=== PATIENT | female | born 1960 | race African-American/Black ===

== ENCOUNTER 2018-01-17 08:44 | Emergency (ER) | payer MEDICAID ==
[~2018-01-17] VITALS: Ht 157.5 cm; Wt 62.2 kg
[~2018-01-17 08:44] MED LIST: DIAZ5TAB4 PO; GABAPENTIN PO; HYDR-3237 PO; METH750T87 PO; NAPROXEN PO; OMEP10CA4 PO; OXYC-302 PO; TRIA60LO3 TP
[2018-01-17 08:46] VITALS: BP 163/88
[2018-01-17] MEDS ORDERED: HYDROmorphone 1 MG/ML, 1ML IM ONE (09:00)
[2018-01-17] MEDS ORDERED: ONDANSETRON ODT 4 MG PO ONE (09:00)
[2018-01-17] MEDS ORDERED: GABA-827 PO (09:02)
[2018-01-17] MEDS ORDERED: OXYC1TAB9 PO (09:02)
[2018-01-17] MEDS ORDERED: AMIT100T PO (09:02)
[2018-01-17] MEDS ORDERED: HYDROmorphone 2 MG/ML, 1ML ONE (09:05)
[2018-01-17] MEDS ORDERED: ONDANSETRON ODT 4 MG ONE (09:05)
== END 2018-01-17 10:12 | disposition home or self-care (01) ==
LOC: ED 09:06
DX: S52.602A Unspecified fracture of lower end of left ulna, initial encounter for closed fracture (principal); W01.0XXA Fall on same level from slipping, tripping and stumbling without subsequent striking against object, initial encounter; Y93.01 Activity, walking, marching and hiking; Y92.410 Unspecified street and highway as the place of occurrence of the external cause; Y99.8 Other external cause status
CPT/HCPCS: 73110; 73130; 96372; 99284; J1170; Q0162

== ENCOUNTER 2020-01-05 17:14 | Emergency (ER) | payer MEDICAID, MEDICARE ==
[~2020-01-05] VITALS: Ht 157.5 cm; Wt 67.9 kg
[~2020-01-05 17:14] MED LIST changes: +AMIT100T PO; +AMIT25TA PO; +BUPR100T8 PO; +CYCL-259 PO; +DOCU100T6 PO; +GABA-827 PO; +GABA300C10 PO; +NAPR-685 PO; -OMEP10CA4 PO; +OMEP10CA5 PO; +OMEP40CA42 PO; +OXYC-432 PO; -TRIA60LO3 TP; +TRIA60LO9 TP
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
[2020-01-05] MEDS ORDERED: CHOLESTEROL MEDICINE (17:57)
--- NOTE | 2020-01-05 18:37 | NUR ---
PT REFUSING WOUND IRRIGATION UNTIL PAIN MED RECEIVED. C/O "A FUCKING HEADACHE"
[2020-01-05] MEDS ORDERED: L.E.T SOLUTION TP ONE ×2 (18:41→19:00)
[2020-01-05] MEDS ORDERED: LIDOCAINE 1%-EPI 1:100K, 20ML SQ ONE (19:00)
[2020-01-05] MEDS ORDERED: DIPH,PERTUSS(ACELL),TET VAC/PF 0.5 ML IM-VACC ONE ×2 (19:48→20:00)
[2020-01-05 19:56] VITALS: BP 141/90
[2020-01-05] MEDS ORDERED: NEOSPORIN OINT. PKT 1 PACKET ONE (20:03)
--- NOTE | 2020-01-05 20:05 | NUR ---
NEOSPORIN APPLIED TO WOUND. WRITTEN DC INSTRUCTIONS DISCUSSED W/ PT; UNDERSTANDING VERBALIZED.
== END 2020-01-05 20:14 | disposition home or self-care (01) ==
LOC: ED 18:15
DX: S01.01XA Laceration without foreign body of scalp, initial encounter (principal); K21.9 Gastro-esophageal reflux disease without esophagitis; I10 Essential (primary) hypertension; Z98.890 Other specified postprocedural states; W01.0XXA Fall on same level from slipping, tripping and stumbling without subsequent striking against object, initial encounter; Y93.89 Activity, other specified; Y92.488 Other paved roadways as the place of occurrence of the external cause; Y99.8 Other external cause status
CPT/HCPCS: 12031; 90471; 90715; 99284